=== PATIENT | female | born 1950 | race Caucasian/White ===

== ENCOUNTER 2022-06-04 15:27 | Inpatient (IN) | payer MEDICARE ==
[2022-06-04] MEDS ORDERED: Morphine 4 MG/ML VIAL SLOW IVP PRN ×2 (15:31→16:44)
[2022-06-04] MEDS ORDERED: Dextrose 50% Abboject 50 ML SYRINGE SLOW IVP PRN (15:31)
[2022-06-04] MEDS ORDERED: Ondansetron PF 4 MG/2 ML Vial IVP PRN (15:31)
[2022-06-04] MEDS ORDERED: TETANUS, DIPHTHERIA TOX,ADULT (TDVAX) 0.5 ML VIAL IM ONE (15:31)
[2022-06-04] MEDS ORDERED: Ondansetron ODT 4 MG TAB PO PRN (15:31)
[2022-06-04] MEDS ORDERED: Dextrose 5% in Water 1,000 ML IV PRN (15:31)
[2022-06-04] MEDS ORDERED: traMADol HCl 50 MG TAB PO PRN (15:37)
[2022-06-04 16:34] VITALS: BMI 30.2
[2022-06-04] MEDS ORDERED: FLU VACC QS2022-23(65YR UP)/PF 240 MCG/0.7 ML SYRINGE IM ONE (17:00)
[2022-06-04] MEDS: traMADol HCl 50 MG TAB PO SCH (17:32)
[2022-06-04] MEDS: Acetaminophen 500 MG TAB PO SCH (17:33)
[2022-06-04] MEDS: Ketorolac Tromethamine 30 MG/ML VIAL IVP SCH (17:33)
[2022-06-04] MEDS: Cyclobenzaprine 10 MG TAB PO PRN (20:36)
[2022-06-04] MEDS: Famotidine 20 MG TAB PO SCH (20:36)
[2022-06-04] MEDS: Senokot S 8.6-50 MG TAB PO SCH (20:37)
[2022-06-04] MEDS ORDERED: Sodium Chloride 0.9% 1,000 ML IV SCH (23:55)
[2022-06-05] MEDS: traMADol HCl 50 MG TAB PO SCH ×4 (00:06→17:25)
[2022-06-05] MEDS: Acetaminophen 500 MG TAB PO SCH ×4 (00:06→17:25)
[2022-06-05] MEDS: Ketorolac Tromethamine 30 MG/ML VIAL IVP SCH ×5 (00:07→17:26)
[2022-06-05 05:37] LABS: #Lymphocytes 0.4 thou/uL (1.20-3.40); #Monocytes 0.7 thou/uL (0.11-0.59); #Neutrophils 9.6 thou/uL (1.40-6.50); %Eosinophils 0.2 % (0.0-10.0); %Lymphocytes 3.9 % (21.0-51.0); %Monocytes 6.4 % (0.0-10.0); %Neutrophils 89.6 % (42.0-75.0); Hemoglobin 11.8 g/dL (12.0-16.0); Mean Corpuscular HGB CONC 32.6 g/dL (32.0-36.0); Mean Platelet Volume 6.9 fL (7.4-10.4); Platelet Count 255 10x3/uL (130-400); RBC Distribution Width 15.1 % (11.5-14.5); Red Blood Cell (RBC) Count 4.21 mill/uL (4.20-5.40); White Blood Cell (WBC) Count 10.8 10x3/uL (4.8-10.8)
[2022-06-05 05:56] LABS: Anion Gap 13 mmol/L (10-20); BUN (Urea Nitrogen) 31 mg/dL (9.8-20.1); Calc. Creatinine Clearance 92 mL/min (70-130); Carbon Dioxide 24 mmol/L (23-31); Chloride 106 mmol/L (98-107); Estimated GFR 94; Glucose 102 mg/dL (80-115); Potassium 3.4 mmol/L (3.5-5.1); Sodium 140 mmol/L (136-145)
[2022-06-05 05:57] LABS: Magnesium 2.5 mg/dL (1.6-2.6); Phosphorus 2.3 mg/dL (2.3-4.7)
[2022-06-05 07:21] LABS: SARS-CoV-2 NAA Rapid Test Not Detected (NotDetected)
[2022-06-05] MEDS: Polyethylene Glycol 3350 17 GM Packet PO SCH (07:38)
[2022-06-05] MEDS: Senokot S 8.6-50 MG TAB PO SCH ×2 (07:38→20:48)
[2022-06-05] MEDS: Famotidine 20 MG TAB PO SCH ×2 (07:38→20:48)
[2022-06-05] MEDS ORDERED: Sodium Chloride 0.9% 100 ML ONE (14:16)
[2022-06-05] MEDS ORDERED: CEFAZOLIN 2 GM VIAL ONE (14:16)
[2022-06-05] MEDS ORDERED: Neomycin-Polymyxin 1 ML AMP ONE (14:17)
[2022-06-05] MEDS ORDERED: Bupivacaine HCl 0.5%/Epinephrine 1:200,000/PF 30 ml Vial ONE (14:17)
[2022-06-05] MEDS ORDERED: Fentanyl 250 MCG/5 ML VIAL ONE (14:21)
[2022-06-05] MEDS ORDERED: Famotidine/PF 20 mg/2ml Vial ONE (14:22)
[2022-06-05] MEDS ORDERED: PROPOFOL 200 MG/20 ML VIAL ONE (14:31)
[2022-06-05] MEDS ORDERED: Lidocaine 1% PF 5 ML VIAL ONE (14:31)
[2022-06-05] MEDS ORDERED: NEOSTIGMINE 3 MG/3 ML SYR 3 MG/3 ML SYRINGE ONE (14:31)
[2022-06-05] MEDS ORDERED: Ketorolac Tromethamine 30 MG/ML VIAL ONE (14:31)
[2022-06-05] MEDS ORDERED: Glycopyrrolate 0.2 MG/ML 5 ML SYRINGE ONE (14:31)
[2022-06-05] MEDS ORDERED: Ondansetron PF 4 MG/2 ML Vial ONE (14:31)
[2022-06-05] MEDS ORDERED: Rocuronium Bromide 10 MG/ML (10ML VIAL) ONE (14:31)
[2022-06-05] MEDS ORDERED: Midazolam HCl 2 mg/2 ml Vial ONE (14:35)
[2022-06-05] MEDS ORDERED: TETANUS, DIPHTHERIA TOX,ADULT (TDVAX) 0.5 ML VIAL IM ONE (14:38)
[2022-06-05] MEDS ORDERED: Communication Order-Pharmacy FS SCH (14:45)
[2022-06-05] MEDS ORDERED: Promethazine HCl 25 MG/ML VIAL IVPB PRN (15:24)
[2022-06-05] MEDS ORDERED: HYDROmorphone 2 MG/ML VIAL SLOW IVP PRN (15:24)
[2022-06-05] MEDS ORDERED: Promethazine HCl 25 MG/ML VIAL IM PRN (15:24)
[2022-06-05] MEDS ORDERED: hydrALAZINE 20 MG/ML VIAL SLOW IVP PRN (20:25)
[2022-06-05] MEDS: Cyclobenzaprine 10 MG TAB PO PRN (20:48)
[2022-06-05] MEDS: Aspirin 81 mg Enteric Coated Tablet PO SCH (20:48)
[2022-06-05] MEDS: CEFAZOLIN 2 GM in Sodium Chloride 0.9% 100 ML IVPB SCH (20:49)
[2022-06-06] MEDS: Ketorolac Tromethamine 30 MG/ML VIAL IVP SCH ×2 (00:55→05:42)
[2022-06-06] MEDS: Acetaminophen 500 MG TAB PO SCH ×4 (00:56→19:44)
[2022-06-06] MEDS: traMADol HCl 50 MG TAB PO SCH ×4 (00:56→20:14)
[2022-06-06] MEDS: CEFAZOLIN 2 GM in Sodium Chloride 0.9% 100 ML IVPB SCH (05:42)
[2022-06-06 06:36] LABS: #Lymphocytes 0.6 thou/uL (1.20-3.40); #Monocytes 1.1 thou/uL (0.11-0.59); %Basophils 0.1 % (0.0-1.0); %Eosinophils 0.1 % (0.0-10.0); %Lymphocytes 4.7 % (21.0-51.0); %Monocytes 8.5 % (0.0-10.0); %Neutrophils 86.6 % (42.0-75.0); Mean Corpuscular HGB CONC 32.8 g/dL (32.0-36.0); Mean Corpuscular Hemoglobin 28.1 pg (27.0-31.0); Mean Corpuscular Volume 85.7 fl (78.0-98.0); Mean Platelet Volume 6.9 fL (7.4-10.4); Platelet Count 244 10x3/uL (130-400); RBC Distribution Width 14.9 % (11.5-14.5); Red Blood Cell (RBC) Count 3.57 mill/uL (4.20-5.40); White Blood Cell (WBC) Count 12.6 10x3/uL (4.8-10.8)
[2022-06-06 07:04] LABS: Anion Gap 13 mmol/L (10-20); BUN (Urea Nitrogen) 31 mg/dL (9.8-20.1); Calc. Creatinine Clearance 78 mL/min (70-130); Calcium 10.9 mg/dL (7.8-10.44); Carbon Dioxide 25 mmol/L (23-31); Chloride 104 mmol/L (98-107); Estimated GFR 80; Glucose 134 mg/dL (80-115); Magnesium 2.1 mg/dL (1.6-2.6); Potassium 3.4 mmol/L (3.5-5.1); Sodium 139 mmol/L (136-145)
[2022-06-06] MEDS ORDERED: Potassium Chloride 20 MEQ TAB PO SCH (08:00)
[2022-06-06] MEDS: Senokot S 8.6-50 MG TAB PO SCH (08:56)
[2022-06-06] MEDS: Famotidine 20 MG TAB PO SCH (08:57)
[2022-06-06] MEDS: Polyethylene Glycol 3350 17 GM Packet PO SCH (08:57)
[2022-06-06] MEDS: Aspirin 81 mg Enteric Coated Tablet PO SCH (08:58)
[2022-06-06] MEDS ORDERED: Ibuprofen 200 MG TAB PO PRN (11:59)
[2022-06-06 16:45] VITALS: BP 145/82; TEMP 98.2
== END 2022-06-06 22:10 | DRG 522 ==
LOC: SJJU 16:10
PROVIDERS: ADMIT Surgery; ATTEND Surgery
PROC: 0SR90JZ Replacement of Right Hip Joint with Synthetic Substitute, Open Approach (ICD-10-PCS; principal; 2022-06-05)
DX: M84.451A Pathological fracture, right femur, initial encounter for fracture (principal); Z20.822 Contact with and (suspected) exposure to COVID-19; E83.52 Hypercalcemia; E87.6 Hypokalemia; Z28.21 Immunization not carried out because of patient refusal
CPT/HCPCS: 36415; 36416; 71045; 80048; 83735; 84100; 85025; 86850; 86900; 86901; 88305; 88342; C1713; C1776; J1885; J2250; J2405; J2704; J3010; J3490; J7030; J7050; S0028; U0002